=== PATIENT | female | born 1960 ===

== ENCOUNTER 2017-02-14 17:29 | Emergency (ER) | payer SELFPAY ==
[2017-02-14 18:54] VITALS: BP 168/78; PULSE 78; RESP 20; TEMP 98.8; O2SAT 99
[2017-02-14] MEDS ORDERED: Lidocaine 5% Patch TD STA (19:20)
[2017-02-14] MEDS ORDERED: Lidocaine 5% Patch TD ONE (19:25)
--- NOTE | 2017-02-14 19:33 | C.PDOC ---
History Of Present Illness 56 y/o female with parkinsons and htn, brought to ed by son for 1 week hx of left buttock pain that radiates down her left leg, no injury or prolonged sitting prior to pain. pt seen by Dr Gardner, on 02/10 for same, give rx for baclofen and nambutone. pt took for 2 days without improvement and returned to Dr Heaton he then prescribed percocet. pt took meds but vomited after with no pain relief. no numbness or tingling. no saddle anesthesia and no bladder or bowel dysfunction. Time Seen by Provider: 02/14/17 19:03 Chief Complaint (Nursing): Back Pain History Per: Patient History/Exam Limitations: no limitations Onset/Duration Of Symptoms: Other (1 week ) Current Symptoms Are (Timing): Still Present Quality Of Discomfort: "Pain" Associated Symptoms: denies: Incontinence, New Weakness, New Numbness Additional History Per: Patient Past Medical History Reviewed: Historical Data, Nursing Documentation, Vital Signs Vital Signs: Last Vital Signs Temp 98.8 F 02/14/17 18:44 Pulse 78 02/14/17 18:44 Resp 20 02/14/17 20:15 BP 168/78 H 02/14/17 18:44 Pulse Ox 99 02/15/17 06:47 - Medical History PMH: HTN Surgical History: No Surg Hx Family History: States: Unknown Family Hx - Social History Hx Alcohol Use: No Hx Substance Use: No - Immunization History Hx Tetanus Toxoid Vaccination: No Hx Influenza Vaccination: No Hx Pneumococcal Vaccination: No Review Of Systems Genitourinary: Negative for: Incontinence Musculoskeletal: Positive for: Leg Pain (left), Other (left buttock pain ) Neurological: Negative for: Weakness, Numbness Physical Exam - Physical Exam Appears: Non-toxic, No Acute Distress Skin: Normal Color, Warm, Dry Head: Atraumatic, Normacephalic Eye(s): bilateral: Normal Inspection Oral Mucosa: Moist Neck: Supple Chest: Symmetrical, No Deformity, No Tenderness Cardiovascular: Rhythm Regular, No Murmur Respiratory: Normal Breath Sounds, No Rales, No Rhonchi, No Wheezing Gastrointestinal/Abdominal: Soft, No Tenderness, No Guarding, No Rebound Back: No Vertebral Tenderness, Other (left-sided sciatic notch tenderness ) Extremity: Normal ROM, Capillary Refill (less than 2 seconds ) Pulses: Left Dorsalis Pedis: Normal, Right Dorsalis Pedis: Normal Neurological/Psych: Oriented x3, Normal Speech, Normal Cognition, Normal Sensation Gait: Other (walking with mild limp) ED Course And Treatment O2 Sat by Pulse Oximetry: 99 (on RA ) Pulse Ox Interpretation: Normal Medical Decision Making Medical Decision Making: pt given toradol and lidoderm patch; has decreased pain after. pt has nambutone and baclon at home, advised to continue taking and to f/u pmd for pt referral. Disposition Counseled Patient/Family Regarding: Diagnosis, Need For Followup, Rx Given - Disposition Referrals: Kobe Gardner MD [Staff Provider] - Disposition: HOME/ ROUTINE Disposition Time: 19:59 Condition: IMPROVED Additional Instructions: Please take Baclofen and nambutone as prescribed. Avoid oxycodone- makes you nauseous. Apply warm compresses to upper buttocks area several times a day- hot water bottle recommended. Remove patch after 12 hours. Follow up with Dr Gardner in the next few days. Recommend physical therapy. 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 - Scribe Statement The provider has reviewed the documentation as recorded by the Scribe (Kalee Cano) All medical record entries made by the Scribe were at my direction and personally dictated by me. I have reviewed the chart and agree that the record accurately reflects my personal performance of the history, physical exam, medical decision making, and the department course for this patient. I have also personally directed, reviewed, and agree with the discharge instructions and disposition.
== END 2017-02-14 20:14 | disposition home or self-care (01) ==
LOC: C.ER 17:29
DX: M54.32 Sciatica, left side (principal)
CPT/HCPCS: 96372; 99285; J1885